=== PATIENT | female | born 1945 | race Caucasian/White ===

== ENCOUNTER 2017-01-31 14:36 | Emergency (ER) | payer MEDICARE, OTHER ==
[~2017-01-31] VITALS: Ht 160 cm; Wt 79.8 kg
[~2017-01-31 14:36] MED LIST: DOCU-109 PO; ESOM20CA PO; FERR15DR17 PO; LISI10TA2 PO; MULT-658 PO; TRAM50TA PO
--- NOTE | 2017-01-31 14:40 | PHYS DOC ---
Past History Past Medical History: Other Past Surgical History: Other Alcohol Use: Occasionally Drug Use: None Adult General Chief Complaint Chief Complaint: scalp laceration [facility] HPI Patient is a 71 year old female who presents with laceration. She was watched giving her dog when the leash got up and her feet and she fell forwards hitting her head on the rail of the bridge he was walking across. She grabbed the railing with her right hand and then spun around and hit her head and her left elbow. She denies getting knocked out. She states it started bleeding instantly. She states her tetanus shot is updated within the last 1 year. She denies any neck pain, blurry vision, headache. Review of Systems Review of Systems Constitutional: Denies fever or chills [] Eyes: Denies change in visual acuity, redness, or eye pain [] HENT: Denies nasal congestion or sore throat [] Respiratory: Denies cough or shortness of breath [] Cardiovascular: No additional information not addressed in HPI [] GI: Denies abdominal pain, nausea, vomiting, bloody stools or diarrhea [] : Denies dysuria or hematuria [] Musculoskeletal: Denies back pain or joint pain [] Integument: Denies rash positive for scalp laceration, bruising on left elbow Neurologic: Denies headache, focal weakness or sensory changes [] Endocrine: Denies polyuria or polydipsia [] All other systems were reviewed and found to be within normal limits, except as documented in this note. Allergies Allergies Allergies Coded Allergies Type Severity Reaction Last Updated Verified No Known Drug Allergies 08/10/14 No Physical Exam Physical Exam Constitutional: Well developed, well nourished, no acute distress, non-toxic appearance. [] HENT: Normocephalic, bilateral external ears normal, oropharynx moist, no oral exudates, nose normal. 2 similar laceration on the left scalp on forehead[] Eyes: PERRLA, EOMI, conjunctiva normal, no discharge. [] Neck: Normal range of motion, no tenderness, supple, no stridor. [] Cardiovascular:Heart rate regular rhythm, no murmur [] Lungs & Thorax: Bilateral breath sounds clear to auscultation [] Abdomen: Bowel sounds normal, soft, no tenderness, no masses, no pulsatile masses. [] Skin: Warm, dry, no erythema, no rash. [] Back: No tenderness, no CVA tenderness. [] Extremities: No tenderness, no cyanosis, no clubbing, ROM intact, no edema. Ecchymosis noted over left elbow without any pain or discomfort able to flex and extend at elbow, wrist, fingers without difficulty, sensation intact is radial median and ulnar nerve distribution Neurologic: Alert and oriented X 3, normal motor function, normal sensory function, no focal deficits noted. [] Psychologic: Affect normal, judgement normal, mood normal. [] EKG EKG [] Radiology/Procedures Radiology/Procedures [address] [id number] IMAGING REPORT Signed PATIENT: MALISSA BENNETT ACCOUNT: [id number] : 1945 LOCATION: ER AGE: 71 SEX: F EXAM STATUS: REG ER ORD. PHYSICIAN: ERICK JOSEPH MD REASON: trauma PROCEDURE: CT HEAD AND CERVICAL SPINE WO CT head Indication:trauma Technique: CT head without IV contrast Comparison: Study from 08/03/2014. Findings: No pathologic extra-axial or intra-axial fluid collection. No midline shift. The ventricles and basal cisterns are within normal limits. No acute intracranial bleed. No focal loss of venegas-white differentiation. Superficial soft tissue injury noted overlying the left anterolateral frontal bone. The orbits are within normal limits. No calvarial fractures. Visualized nasal sinuses and mastoid air cells are clear. Impression: 1. No acute intracranial process. 2. Superficial soft tissue injury overlying left anterolateral frontal bone. No acute fractures. CT cervical spine Indication: Trauma Technique: CT cervical spine without IV contrast with multiplanar reformats. Comparison: 08/26/2014 Findings: Cervical spine is in normal anatomic alignment. No compression deformities. Atlantoaxial joint is preserved with degenerative changes. Facet joints are in normal thoracic alignment with multilevel facet arthropathy. There is multilevel intervertebral disc space narrowing with endplate sclerosis and osteophytosis. No acute fractures. Prevertebral soft tissues are within normal limits. Clear lung apices. No bulky cervical adenopathy. Impression: 1. No acute fractures. 2. Multilevel degenerative disc disease and facet arthropathy.. PQRS Compliance Statement: One or more of the following individualized dose reduction techniques were utilized for this examination: 1. Automated exposure control 2. Adjustment of the mA and/or kV according to patient size 3. Use of iterative reconstruction technique DICTATED AND SIGNED BY: SEUN CURIEL DO DATE: 01/31/17 1505 CC: ERICK JOSEPH MD; HUMZA LI APRN ~ Impressions: Scalp laceration Closed head injury Course & Med Decision Making Course & Med Decision Making Pertinent Labs and Imaging studies reviewed. (See chart for details) Laceration was repaired, CT head neck negative. Patient being discharged home. Sutures out in 9-10 days. Return precautions given. Dragon Disclaimer Dragon Disclaimer This electronic medical record was generated, in whole or in part, using a voice recognition dictation system. Departure Departure: Impression: Primary Impression: Closed head injury Disposition: 01 HOME, SELF-CARE Condition: STABLE Referrals: HUMZA LI APRN (PCP) Patient Instructions: Laceration Care, Adult, [id number] Additional Instructions: The CAT scan of her head neck did not show any broken bones. You have 4 sutures was placed in your scalp that we need to come out in 9-10 days. If you develop lightheadedness dizziness confusion, fevers, redness or pain over the site please return back to ER immediately. Laceration Repair Lac Repair Indication: Scalp laceration Procedure: The patient was placed in the appropriate position and anesthesia around the 1 cm scalp laceration with let and then buffered lidocaine 1%. The area was then normal saline. The laceration was 4-0 Ethicon The wound area was then dressed with sterile dressing. Total repaired wound length: 1 Centimeter. The patient tolerated the procedure well. Complications: No complications noted. ERICK JOSEPH MD Jan 31, 2017 14:40
[2017-01-31 14:56] VITALS: BP 145/82
[2017-01-31] MEDS ORDERED: LIDOCAINE/EPI/TETRACAINE TOPICAL GEL 3 ML. TP ONE (15:15)
[2017-01-31] MEDS ORDERED: LIDOCAINE WITH 8.4% SOD BICARB 3 ML DISP.SYRIN. IJ ONE ×2 (15:25→16:00)
--- NOTE | 2017-01-31 15:43 | RAD ---
CT head Indication:trauma Technique: CT head without IV contrast Comparison: Study from 08/03/2014. Findings: No pathologic extra-axial or intra-axial fluid collection. No midline shift. The ventricles and basal cisterns are within normal limits. No acute intracranial bleed. No focal loss of venegas-white differentiation. Superficial soft tissue injury noted overlying the left anterolateral frontal bone. The orbits are within normal limits. No calvarial fractures. Visualized nasal sinuses and mastoid air cells are clear. Impression: 1. No acute intracranial process. 2. Superficial soft tissue injury overlying left anterolateral frontal bone. No acute fractures. CT cervical spine Indication: Trauma Technique: CT cervical spine without IV contrast with multiplanar reformats. Comparison: 08/26/2014 Findings: Cervical spine is in normal anatomic alignment. No compression deformities. Atlantoaxial joint is preserved with degenerative changes. Facet joints are in normal thoracic alignment with multilevel facet arthropathy. There is multilevel intervertebral disc space narrowing with endplate sclerosis and osteophytosis. No acute fractures. Prevertebral soft tissues are within normal limits. Clear lung apices. No bulky cervical adenopathy. Impression: 1. No acute fractures. 2. Multilevel degenerative disc disease and facet arthropathy.. PQRS Compliance Statement: One or more of the following individualized dose reduction techniques were utilized for this examination: 1. Automated exposure control 2. Adjustment of the mA and/or kV according to patient size 3. Use of iterative reconstruction technique
== END 2017-01-31 16:30 | disposition home or self-care (01) ==
LOC: ER 14:36
DX: S01.01XA Laceration without foreign body of scalp, initial encounter (principal); S50.02XA Contusion of left elbow, initial encounter; W18.09XA Striking against other object with subsequent fall, initial encounter; Y93.89 Activity, other specified; Y99.8 Other external cause status; Y92.89 Other specified places as the place of occurrence of the external cause
CPT/HCPCS: 12001; 70450; 72125; 99284-25

== ENCOUNTER → 2017-02-19 | Outpatient (CLI) | payer MEDICARE, OTHER ==
[2017-01-31 14:56] VITALS: BP 145/82
--- NOTE | 2017-02-19 14:31 | RAD ---
DATE: 02/19/2017 EXAM: MAMMO CRISTIANE SCREENING BILATERAL HISTORY: Routine screening. COMPARISON: 10/25/2015 This study was interpreted with the benefit of Computerized Aided Detection (CAD). FINDINGS: The parenchymal pattern is stable. No mass or malignant appearing microcalcifications are seen. The axillae are unremarkable. Breast Density: SCATTERED The breast parenchyma shows scattered fibroglandular densities. Breast parenchyma level B. IMPRESSION: No mammographic features suspicious for malignancy are identified. BI-RADS CATEGORY: 1 NEGATIVE RECOMMENDED FOLLOW-UP: 12M 12 MONTH FOLLOW-UP PQRS compliance statement: Patient information was entered into a reminder system with a target due date 02/19/2018 for the next mammogram. Mammography is a sensitive method for finding small breast cancers, but it does not detect them all and is not a substitute for careful clinical examination. A negative mammogram does not negate a clinically suspicious finding and should not result in delay in biopsying a clinically suspicious abnormality. "Our facility is accredited by the [employer] Mammography Program."
== END | disposition home or self-care (01) ==
LOC: MAMMO 08:59
PROVIDERS: ATTEND Specialist
DX: Z12.31 Encounter for screening mammogram for malignant neoplasm of breast (principal)
CPT/HCPCS: 77063; G0202; 77067

== ENCOUNTER 2017-11-30 08:16 | Emergency (ER) | payer MEDICARE, OTHER ==
[~2017-11-30] VITALS: Ht 157.5 cm; Wt 66.1 kg
[2017-11-30 08:28] VITALS: BP 145/82
[2017-11-30] MEDS ORDERED: VALA1000 PO (08:35)
--- NOTE | 2017-11-30 08:40 | PHYS DOC ---
Past History Past Medical History: Depression, Hypertension Past Surgical History: Other Alcohol Use: Occasionally Drug Use: None Adult General Chief Complaint Chief Complaint: SKIN PROBLEM HPI HPI 72-year-old female presents with rash on the right side of her face. She first noticed this sometime overnight. She works overnight. She did not have a rash yesterday. The rash is slightly erythematous and on the right forehead, right neck, and behind the right ear. She denies pruritus or pain. It does appear to have a couple of vesicles on the forehead portion. Patient is concern for shingles. She just had shingles of the right side of her abdomen a few months ago, in June. The patient denies any other cause for rash such as new cosmetics, new soaps, or any new skin exposures. She denies fever or chills. She has not had any difficulty taking acyclovir in the past. Review of Systems Review of Systems Constitutional: Denies fever or chills [] Eyes: Denies change in visual acuity, redness, or eye pain [] HENT: Denies nasal congestion or sore throat [] Respiratory: Denies cough or shortness of breath [] Cardiovascular: No additional information not addressed in HPI [] GI: Denies abdominal pain, nausea, vomiting, bloody stools or diarrhea [] : Denies dysuria or hematuria [] Musculoskeletal: Denies back pain or joint pain [] Integument: right side facial rash[] Neurologic: Denies headache, focal weakness or sensory changes [] Endocrine: Denies polyuria or polydipsia [] All other systems were reviewed and found to be within normal limits, except as documented in this note. Allergies Allergies Allergies Coded Allergies Type Severity Reaction Last Updated Verified No Known Drug Allergies 08/10/14 No Physical Exam Physical Exam Constitutional: Well developed, well nourished, no acute distress, non-toxic appearance. [] HENT: Normocephalic, atraumatic, bilateral external ears normal, oropharynx moist, no oral exudates, nose normal. [] Eyes: PERRLA, EOMI, conjunctiva normal, no discharge. [] Neck: Normal range of motion, no tenderness, supple, no stridor. [] Cardiovascular:Heart rate regular rhythm, no murmur [] Lungs & Thorax: Bilateral breath sounds clear to auscultation [] Abdomen: Bowel sounds normal, soft, no tenderness, no masses, no pulsatile masses. [] Skin: Mildly erythematous rash over the right forehead, right neck, and around the right ear. The area over the forehead does appear to have vesicles forming.[ ] Back: No tenderness, no CVA tenderness. [] Extremities: No tenderness, no cyanosis, no clubbing, ROM intact, no edema. [] Neurologic: Alert and oriented X 3, normal motor function, normal sensory function, no focal deficits noted. [] Psychologic: Affect normal, judgement normal, mood normal. [] EKG EKG [] Radiology/Procedures Radiology/Procedures [] Course & Med Decision Making Course & Med Decision Making Pertinent Labs and Imaging studies reviewed. (See chart for details) The patient's rash does appear to be consistent with herpes zoster. This would be in the trigeminal nerve distribution on the right side. Given the proximity to the eye, I will certainly treat her with valacyclovir 1g 3 times a day for 7 days. 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 She is stable for discharge at this time. [] Dragon Disclaimer Dragon Disclaimer This electronic medical record was generated, in whole or in part, using a voice recognition dictation system. Departure Departure: Impression: Primary Impression: Herpes zoster virus infection of face and ear nerves Disposition: 01 HOME, SELF-CARE Condition: STABLE Patient Instructions: Herpes Zoster Virus Vaccine Scripts Valacyclovir Hcl (VALACYCLOVIR) 1,000 Mg Tablet 1 TAB PO TID, #21 TAB Prov: EMMY FIGUEROA DO 11/30/17 EMMY FIGUEROA DO Nov 30, 2017 08:40
== END 2017-11-30 08:30 | disposition home or self-care (01) ==
LOC: ER 08:16
DX: B02.8 Zoster with other complications (principal); F32.9 Major depressive disorder, single episode, unspecified; I10 Essential (primary) hypertension
CPT/HCPCS: 99283

== ENCOUNTER 2017-12-04 16:02 | Emergency (ER) | payer MEDICARE, OTHER ==
[~2017-12-04] VITALS: Ht 157.5 cm; Wt 66.1 kg
[~2017-12-04 16:02] MED LIST changes: +VALA1000 PO
--- NOTE | 2017-12-04 16:42 | PHYS DOC ---
Past History Past Medical History: Anxiety, Depression, Hypertension Past Surgical History: Other Alcohol Use: Occasionally Drug Use: None Adult General Chief Complaint Chief Complaint: SKIN RASH/ABSCESS HPI HPI 72-year-old female returns emergency room with rash. I personally saw the patient a few days ago with what appeared to be early shingles on the right side of her face. At this time the patient has more erythematous patches on the right side of her face and all down her neck. The location is her confluent from the bottom of her jaw down to the collarbone. There are then a few scattered patches inferior to the clavicle. The patient also has erythematous areas underneath her right breast and on her left breast. She states that all of the areas are intensely pruritic. The rash on her neck has a burning character. She denies any drain vesicles. She cannot think of what she might be allergic to. She has been outside tossing [employer] down a hill almost every day. She's had no changes in cosmetics, soaps, or detergents. The patient has been taking her Valtrex as prescribed. She denies fever or chills. Review of Systems Review of Systems Constitutional: Denies fever or chills [] Eyes: Denies change in visual acuity, redness, or eye pain [] HENT: Denies nasal congestion or sore throat [] Respiratory: Denies cough or shortness of breath [] Cardiovascular: No additional information not addressed in HPI [] GI: Denies abdominal pain, nausea, vomiting, bloody stools or diarrhea [] : Denies dysuria or hematuria [] Musculoskeletal: Denies back pain or joint pain [] Integument: Skin rash[] Neurologic: Denies headache, focal weakness or sensory changes [] Endocrine: Denies polyuria or polydipsia [] All other systems were reviewed and found to be within normal limits, except as documented in this note. Allergies Allergies Allergies Coded Allergies Type Severity Reaction Last Updated Verified No Known Drug Allergies 08/10/14 No Physical Exam Physical Exam Constitutional: Well developed, well nourished, no acute distress, non-toxic appearance. [] HENT: Normocephalic, atraumatic, bilateral external ears normal, oropharynx moist, no oral exudates, nose normal. [] Eyes: PERRLA, EOMI, conjunctiva normal, no discharge. [] Neck: Normal range of motion, no tenderness, supple, no stridor. [] Cardiovascular:Heart rate regular rhythm, no murmur [] Lungs & Thorax: Bilateral breath sounds clear to auscultation [] Abdomen: Bowel sounds normal, soft, no tenderness, no masses, no pulsatile masses. [] Skin: Erythematous patches on the patient's right face, right neck, under her right breast, and on her left breast around the nipple. [] Back: No tenderness, no CVA tenderness. [] Extremities: No tenderness, no cyanosis, no clubbing, ROM intact, no edema. [] Neurologic: Alert and oriented X 3, normal motor function, normal sensory function, no focal deficits noted. [] Psychologic: Affect normal, judgement normal, mood normal. [] Current Patient Data Vital Signs Vital Signs Date Time Temp Pulse Resp B/P (MAP) Pulse Ox O2 Delivery O2 Flow Rate FiO2 12/04/17 16:02 98.7 79 22 97 Room Air EKG EKG [] Radiology/Procedures Radiology/Procedures [] Course & Med Decision Making Course & Med Decision Making Pertinent Labs and Imaging studies reviewed. (See chart for details) The patient's rash now appears to be consistent with allergic reaction. I will treat her with prednisone taper for 2 weeks. Her first dose in the ED. I have instructed her that if the lesions worsen, that she should discontinue the steroids and trying antifungal. I will also give her a prescription for this cream. She will follow up with her PCP as needed. She is stable for discharge at this time. [] Dragon Disclaimer Dragon Disclaimer This electronic medical record was generated, in whole or in part, using a voice recognition dictation system. Departure Departure: Referrals: BYRON RUIZ MD (PCP) EMMY FIGUEROA DO Dec 04, 2017 16:42
[2017-12-04] MEDS ORDERED: predniSONE 20 MG TABLET PO ONE (16:45)
[2017-12-04] MEDS ORDERED: PRED-220 PO (16:45)
[2017-12-04] MEDS ORDERED: KETO15CR2 TP (16:51)
[2017-12-04 16:57] VITALS: BP 128/88
== END 2017-12-04 17:01 | disposition home or self-care (01) ==
LOC: ER 16:02
DX: R21 Rash and other nonspecific skin eruption (principal); L53.8 Other specified erythematous conditions; L29.9 Pruritus, unspecified; I10 Essential (primary) hypertension
CPT/HCPCS: 99283; J7512

== ENCOUNTER → 2018-08-08 | Outpatient (CLI) | payer MEDICARE, OTHER ==
[~2018-08-08] MED LIST changes: +KETO15CR2 TP; +PRED-220 PO
--- NOTE | 2018-08-08 15:20 | RAD ---
CT HEAD WO CONTRAST Indication: Memory loss since December 2014. Exposure: One or more of the following individualized dose reduction techniques were utilized for this examination: 1. Automated exposure control 2. Adjustment of the mA and/or kV according to patient size 3. Use of iterative reconstruction technique. Technique: Standard imaging without intravenous contrast. Comparison with January 31, 2017 images. Report not available No evidence of acute intracranial hemorrhage, mass effect, midline shift or abnormal extra-axial fluid collection. The ventricles and sulci appear symmetric. Goldstein-white matter distinction is intact. The partially seen orbits appear symmetric. No prominent scalp swelling. Partially visualized sinuses are clear. No evidence of acute skull abnormality. IMPRESSION: No evidence of acute intracranial hemorrhage or mass effect. Electronically signed by: Pablito Reed MD (08/08/2018 3:17 PM) [id number]
== END | disposition home or self-care (01) ==
LOC: CT 10:45
PROVIDERS: ATTEND Specialist
DX: R41.3 Other amnesia (principal)
CPT/HCPCS: 70450